=== PATIENT | male | born 1995 | race Caucasian/White ===

== ENCOUNTER 2021-03-24 10:25 | Emergency (ER) | payer OTHER, SELFPAY ==
[2021-03-24] MEDS ORDERED: Ondansetron ODT 4 MG TAB ONE (10:54)
== END 2021-03-24 11:48 | disposition home or self-care (01) ==
LOC: ERS 10:25
DX: J01.90 Acute sinusitis, unspecified (principal)
CPT/HCPCS: 99281; Q0162